=== PATIENT | male | born 1960 | race Caucasian/White ===

== ENCOUNTER 2019-11-12 10:40 | Emergency (ER) | payer MEDICAID ==
[~2019-11-12] VITALS: Ht 167.6 cm; Wt 60.0 kg
[~2019-11-12 10:40] MED LIST: DIVA-112 PO; FENO160T41 PO; LISI-660 PO; VENL-193 PO
[2019-11-12] MEDS ORDERED: ACETAMINOPHEN 500 MG TABLET PO ONE (11:45)
[2019-11-12] MEDS ORDERED: LIDOCAINE 5% TRANSDERMAL PATCH TD ONE (11:45)
[2019-11-12 12:42] LABS: EOSINOPHILS % (AUTO) 5.1 % (1.0-6.0); HEMATOCRIT 35.8 % (41-53); LYMPHOCYTES # (AUTO) 1.6 K/uL (1.0-4.8); LYMPHOCYTES % (AUTO) 26.7 % (22.0-44.0); MEAN CORPUSCULAR HEMOGLOBIN 29.1 pg (26.0-34.0); MEAN CORPUSCULAR HGB CONC 33.6 G/dL (31.0-37.0); MEAN CORPUSCULAR VOLUME 87 fL (80-100); MONOCYTES # (AUTO) 0.5 K/uL (0.1-1.0); MONOCYTES % (AUTO) 8.2 % (2.0-9.0); NEUTROPHILS # (AUTO) 3.5 K/uL (1.8-7.7); PLATELET COUNT (AUTO) 274 K/uL (150-450); RED BLOOD CELL COUNT(AUTO) 4.14 MIL/uL (4.50-5.90); RED CELL DISTRIBUTION WIDTH 14.5 % (11.5-14.5)
[2019-11-12 12:52] LABS: ANION GAP 6 mmol/L (8-16); CALCIUM, TOTAL 8.6 mg/dL (8.8-10.5); CARBON DIOXIDE 29 mmol/L (22-29); CHLORIDE 105 mmol/L (98-107); CREATININE 0.84 mg/dL (0.60-1.30); GLOMERULAR FILTR. RATE CALC > 60 mL/min (>60); GLUCOSE,RANDOM 84 mg/dL (70-110); POTASSIUM 3.7 mmol/L (3.5-5.1); SODIUM SERUM 140 mmol/L (136-145); UREA NITROGEN, BLOOD 16 mg/dL (7-18)
[2019-11-12 12:59] LABS: ALANINE AMINOTRANSFERASE 22 U/L (12-78); ALKALINE PHOSPHATASE 95 U/L (46-116); ASPARTATE AMINOTRANSFERASE 28 U/L (15-37); BILIRUBIN,TOTAL 0.3 mg/dL (0.1-1.0); TOTAL PROTEIN, SERUM 6.8 g/dL (6.4-8.2)
[2019-11-12 13:52] VITALS: BP 111/77
== END 2019-11-12 14:43 | disposition left against medical advice (07) ==
LOC: EMS 10:43
DX: F32.9 Major depressive disorder, single episode, unspecified (principal); R07.89 Other chest pain; F41.9 Anxiety disorder, unspecified; F20.9 Schizophrenia, unspecified; F17.210 Nicotine dependence, cigarettes, uncomplicated; F12.90 Cannabis use, unspecified, uncomplicated; F19.90 Other psychoactive substance use, unspecified, uncomplicated; Z88.5 Allergy status to narcotic agent; Z79.899 Other long term (current) drug therapy
CPT/HCPCS: 36415; 71101; 80053; 85025; 99284; G0480

== ENCOUNTER 2019-11-26 10:08 | Emergency (ER) | payer MEDICAID ==
[~2019-11-26] VITALS: Ht 165.1 cm; Wt 58.2 kg
[2019-11-26] MEDS ORDERED: LORA-1001 PO (10:11)
[2019-11-26 10:35] LABS: BASOPHILS % (AUTO) 0.9 % (0.0-2.0); HEMATOCRIT 40.7 % (41-53); HEMOGLOBIN 13.7 g/dL (13.5-17.5); LYMPHOCYTES # (AUTO) 2.1 K/uL (1.0-4.8); MEAN CORPUSCULAR HEMOGLOBIN 28.6 pg (26.0-34.0); MEAN CORPUSCULAR HGB CONC 33.5 G/dL (31.0-37.0); MEAN CORPUSCULAR VOLUME 85 fL (80-100); MONOCYTES # (AUTO) 0.6 K/uL (0.1-1.0); NEUTROPHILS # (AUTO) 5.1 K/uL (1.8-7.7); NEUTROPHILS % (AUTO) 62.1 % (40.0-70.0); PLATELET COUNT (AUTO) 351 K/uL (150-450); RED BLOOD CELL COUNT(AUTO) 4.77 MIL/uL (4.50-5.90); RED CELL DISTRIBUTION WIDTH 14.2 % (11.5-14.5)
[2019-11-26 10:54] LABS: ANION GAP 6 mmol/L (8-16); CALCIUM, TOTAL 9.6 mg/dL (8.8-10.5); CARBON DIOXIDE 28 mmol/L (22-29); CHLORIDE 100 mmol/L (98-107); CREATININE 0.91 mg/dL (0.60-1.30); GLOMERULAR FILTR. RATE CALC > 60 mL/min (>60); GLUCOSE,RANDOM 109 mg/dL (70-110); POTASSIUM 3.9 mmol/L (3.5-5.1); SODIUM SERUM 134 mmol/L (136-145); UREA NITROGEN, BLOOD 25 mg/dL (7-18)
[2019-11-26 10:56] LABS: AMPHET/METH SCREEN,URINE POSITIVE (NEGATIVE); BARBITURATE SCREEN, URINE NEGATIVE (NEGATIVE); BENZODIAZEPINES SCREEN,URINE NEGATIVE (NEGATIVE); CANNABINOID SCREEN,URINE POSITIVE (NEGATIVE); COCAINE SCREEN,URINE NEGATIVE (NEGATIVE); METHADONE SCREEN, URINE NEGATIVE (NEGATIVE); OPIATE SCREEN,URINE NEGATIVE (NEGATIVE)
[2019-11-26 10:57] LABS: PHENCYCLIDINE SCREEN,URINE NEGATIVE (NEGATIVE)
[2019-11-26 10:59] LABS: ALANINE AMINOTRANSFERASE 23 U/L (12-78); ALBUMIN 3.7 g/dL (3.4-5.0); ALKALINE PHOSPHATASE 111 U/L (46-116); ASPARTATE AMINOTRANSFERASE 28 U/L (15-37); BILIRUBIN,TOTAL 0.3 mg/dL (0.1-1.0); TOTAL PROTEIN, SERUM 8.5 g/dL (6.4-8.2)
[2019-11-26 11:59] VITALS: BP 118/78
[2019-11-26] MEDS ORDERED: LORazepam 2 MG TABLET PO ONE (12:00)
[2019-11-26] MEDS ORDERED: NAPROXEN 250 MG TABLET PO ONE (12:00)
== END 2019-11-26 13:07 | disposition home or self-care (01) ==
LOC: EMS 10:10
DX: F31.9 Bipolar disorder, unspecified (principal); F41.9 Anxiety disorder, unspecified; L84 Corns and callosities; F15.10 Other stimulant abuse, uncomplicated; F17.210 Nicotine dependence, cigarettes, uncomplicated; F12.90 Cannabis use, unspecified, uncomplicated; Z59.0 Homelessness; Z88.5 Allergy status to narcotic agent; Z79.899 Other long term (current) drug therapy
CPT/HCPCS: 36415; 80053; 80307; 85025; 99284; 99406; G0480

== ENCOUNTER 2020-02-29 16:50 | Emergency (ER) | payer MEDICAID ==
[~2020-02-29] VITALS: Ht 165.1 cm; Wt 65.9 kg
[~2020-02-29 16:50] MED LIST changes: +LORA-1001 PO
[2020-02-29] MEDS ORDERED: IBUPROFEN 800 MG TABLET PO ONE (19:30)
[2020-02-29 20:38] LABS: COVID AG,FIA SOURCE NASOPHARYNGEAL
[2020-02-29 21:28] VITALS: BP 121/62
== END 2020-02-29 21:40 | disposition home or self-care (01) ==
LOC: EMS 16:50
DX: H00.012 Hordeolum externum right lower eyelid (principal); J02.9 Acute pharyngitis, unspecified; F41.9 Anxiety disorder, unspecified; F31.9 Bipolar disorder, unspecified; F20.9 Schizophrenia, unspecified; F17.210 Nicotine dependence, cigarettes, uncomplicated; F12.90 Cannabis use, unspecified, uncomplicated; F19.90 Other psychoactive substance use, unspecified, uncomplicated; Z20.828 Contact with and (suspected) exposure to other viral communicable diseases; Z59.0 Homelessness; Z88.5 Allergy status to narcotic agent; Z79.899 Other long term (current) drug therapy
CPT/HCPCS: 87426; 87430

== ENCOUNTER 2020-03-02 07:33 | Emergency (ER) | payer MEDICAID ==
[~2020-03-02] VITALS: Ht 165.1 cm; Wt 60.0 kg
[2020-03-02] MEDS ORDERED: HYDR-3831 PO (07:47)
[2020-03-02] MEDS ORDERED: RISP0.5T39 PO (07:47)
[2020-03-02 09:46] VITALS: BP 98/59
== END 2020-03-02 10:13 | disposition home or self-care (01) ==
LOC: EMS 07:34
DX: H00.012 Hordeolum externum right lower eyelid (principal); F32.9 Major depressive disorder, single episode, unspecified; F17.210 Nicotine dependence, cigarettes, uncomplicated; F12.90 Cannabis use, unspecified, uncomplicated; F15.90 Other stimulant use, unspecified, uncomplicated; Z88.5 Allergy status to narcotic agent
CPT/HCPCS: Z7502

== ENCOUNTER 2020-05-23 11:34 | Emergency (ER) | payer MEDICAID ==
[~2020-05-23] VITALS: Ht 162.6 cm; Wt 68.2 kg
[~2020-05-23 11:34] MED LIST changes: -FENO160T41 PO; +HYDR-3831 PO; -LISI-660 PO; -LORA-1001 PO; +RISP0.5T39 PO
[2020-05-23] MEDS ORDERED: LIDOCAINE 5% TRANSDERMAL PATCH TD ONE (12:45)
[2020-05-23] MEDS: ACETAMINOPHEN 325 MG TABLET PO ONE ×2 (12:54→13:01)
[2020-05-23] MEDS ORDERED: HALOPERIDOL 1 MG TABLET PO ONE (13:15)
[2020-05-23] MEDS ORDERED: NAPROXEN 250 MG TABLET PO ONE (13:15)
[2020-05-23 15:00] VITALS: BP 131/77
== END 2020-05-23 15:33 | disposition home or self-care (01) ==
LOC: EMS 11:58
DX: F20.9 Schizophrenia, unspecified (principal); F17.210 Nicotine dependence, cigarettes, uncomplicated; F12.90 Cannabis use, unspecified, uncomplicated; F15.90 Other stimulant use, unspecified, uncomplicated; F31.9 Bipolar disorder, unspecified
CPT/HCPCS: 99284; Z7502; Z7610

== ENCOUNTER 2020-05-23 22:56 | Emergency (ER) | payer MEDICAID ==
[~2020-05-23] VITALS: Ht 165.1 cm; Wt 57.7 kg
[2020-05-24 00:39] LABS: COVID AG,FIA SOURCE NASOPHARYNGEAL
[2020-05-24] MEDS ORDERED: HydrOXYzine PAMOATE 25 MG CAPSULE PO ONE (01:15)
[2020-05-24 01:28] VITALS: BP 155/85
== END 2020-05-24 02:16 | disposition home or self-care (01) ==
LOC: EMS 22:56
DX: G89.29 Other chronic pain (principal); M79.671 Pain in right foot; M79.672 Pain in left foot; F41.9 Anxiety disorder, unspecified; Z20.822 Contact with and (suspected) exposure to COVID-19
CPT/HCPCS: 87426; 99283; C9803; G0480